=== PATIENT | male | born 1980 | race Caucasian/White ===

== ENCOUNTER 2016-10-15 08:16 | Day surgery (SDC) | payer OTHER ==
[2016-10-14 18:34] LABS: BASOPHILS 0.4 %; BASOPHILS ABSOLUTE 0.04 10/3/uL (0.0-0.16); EOSINOPHILS 2.8 %; EOSINOPHILS ABSOLUTE 0.31 10/3/uL (0.0-0.53); HEMATOCRIT 39.7 % (40.0-51.0); HEMOGLOBIN 13.6 g/dL (13.6-17.8); IMMATURE GRANULOCYTES 0.3 %; IMMATURE GRANULOCYTES ABSOLUTE 0.03 10/3/uL (0.0-0.11); LYMPHOCYTES 24.2 %; LYMPHOCYTES ABSOLUTE 2.65 10/3/uL (0.67-4.30); MEAN CORPUS HGB CONC 34.3 g/dL (32.0-36.0); MEAN CORPUSCULAR VOLUME 87.4 fL (80-100); MEAN PLATELET VOLUME 8.4 fL (9.2-13.0); MONOCYTES 10.5 %; MONOCYTES ABSOLUTE 1.15 10/3/uL (0.21-1.20); NEUTROPHILS 61.8 %; NEUTROPHILS ABSOLUTE 6.79 10/3/uL (2.02-8.40); PLATELET COUNT 314 10/3/uL (150-400); RBC DISTRIBUTION WIDTH 12.8 % (12.0-16.0); RED CELL COUNT 4.54 10/6/uL (4.7-6.1)
[2016-10-14 18:35] LABS: MANUAL DIFF NO %
[2016-10-14 18:59] LABS: BUN (BLOOD UREA NITROGEN) 16 MG/DL (6-23); CALCIUM, SERUM 9.1 MG/DL (8.5-10.4); CHLORIDE, SERUM 105 MMOL/L (96-112); CO2 (CARBON DIOXIDE) 29 MMOL/L (24-34); CREATININE 1.79 MG/DL (0.70-1.30); GFR AFRICAN AMERICAN 56 ML/MIN (>=60); GFR NON AFRICAN AMERICAN 48 ML/MIN (>=60); GLUCOSE, SERUM 93 MG/DL (60-99); POTASSIUM, SERUM 4.5 MMOL/L (3.5-5.3); SODIUM, SERUM 142 MMOL/L (135-148)
[2016-10-14 19:00] LABS: ASCORBIC ACID (UR NOT ORDER) 40 (NEG); BILIRUBIN, URINE NEGATIVE (NEG); KETONE, URINE NEGATIVE (NEG); LEUKOCYTE ESTERASE(NOT OR NEG (NEG); WBC (NOT ORDERED) (RFLEX) 1 (0-5)
--- NOTE | ~2016-10-15 | OP ---
Record Of Operation [facility] [address] [place]. [address] NAME: SUHSA ERVIN : 80 STATUS : REG [facility] PAT#: [id number] AGE: 35 ADM/REG DATE : 10/15/16 MR#: [id number] REPORT SERV DATE: 10/15/16 DICTATED BY: VENKATESH FRANCOIS DATE: 10/15/16 REPORT STATUS : Draft TRANSCRIBED BY: MODL DATE: 10/15/16 DATE OF PROCEDURE: 10/15/2016 PREOPERATIVE DIAGNOSIS: Left ureteral stone. POSTOPERATIVE DIAGNOSIS: Left ureteral stone. PROCEDURES: Cystoscopy, left retrograde pyelogram, dilation of left ureteral orifice, left ureteroscopy, basket extraction of stone, and placement of left ureteral stent. SURGEON: Venkatesh Francois MD. ANESTHESIA: General. DRAINS: A 6 variable-length double-J ureteral stent with a string. COMPLICATIONS: None. ESTIMATED BLOOD LOSS: None. SPECIMENS: Left ureteral stone for stone composition analysis. DISPOSITION: Extubated to recovery room. HISTORY: This is a 35-year-old gentleman who presented to me yesterday with intractable pain from a left ureteral stone. He had been taking Toradol. He presents today for the above- stated procedure. PROCEDURE IN DETAIL: After consent was obtained, the patient was taken to the operating room and placed on the operative table in a supine position. General anesthetic was induced. The patient was then placed in the dorsal lithotomy position. His perineum was prepped and draped in the usual sterile fashion. Examination under anesthesia revealed normal external genitalia. Photographic Laboratory Technician film on the table did not definitively show his stone today. Cystourethroscopy was performed with the 30 and 70-degree lens. There was no evidence of any tumors or foreign body seen in the bladder. He did have some very fine gravel, mobile at the base of his bladder. Clear efflux was readily seen from his right ureteral orifice. His left ureteral orifice was slightly swollen and no efflux was seen. A left retrograde pyelogram was performed which showed mild hydronephrosis. As we attempted to pass a wire up the left ureteral orifice, there was immediate resistance just inside the orifice. With a mild amount of manipulation, we were able to pass the 0.38 Bentson guidewire up the ureter into the kidney. Once the guidewire had passed the stone, we had immediate drainage of sludge from that ureter. The sludge was brown in nature and did not appear purulent. The ureteral dilating balloon was then passed gently inside the distal ureter. The distal ureter was then dilated. The ureteral dilating balloon was removed. The bladder was drained. The scope and sheath were removed and the safety wire was clamped to the drapes. Rigid ureteroscopy was then performed at the distal ureter up to the level of the stone. Record Of Operation [address] [place]. [address] NAME: SUHAS ERVIN : 80 STATUS : REG [facility] PAT#: [id number] AGE: 35 ADM/REG DATE : 10/15/16 MR#: [id number] REPORT SERV DATE: 10/15/16 DICTATED BY: VENKATESH FRANCOIS DATE: 10/15/16 REPORT STATUS : Draft TRANSCRIBED BY: ANDRE DATE: 10/15/16 The filiform basket was used to remove the stone in its entirety. This was sent to Pathology for stone composition analysis. We then re-scoped the distal ureter and found no abnormalities. A retrograde pyelogram was performed, which showed the collecting system was intact. We then removed the ureteroscope and backed the safety wire through the cystoscope. The stent was then passed over the safety wire with a good curl seen in the renal pelvis and in the bladder. It was seen to be draining. A string was left on the stent exiting the patient's urethra. The bladder was drained. The scope and sheath were removed. The string was secured to the patient's penis using Mastisol and Tegaderm. He was awakened from his anesthetic, extubated, and taken to the recovery room in good condition. PLAN: The plan will be to have him remove his stent on Tuesday. He was written for all of his postoperative prescriptions yesterday. He may follow up in 3 to 4 weeks with a KUB. TARUN/ANDRE Venkatesh Francois M.D. / [id number] CC: Venkatesh Francois M.D.
[~2016-10-15 08:16] MED LIST: CIP5 PO; FLOMAX4 PO; NORCO1 TA1 PO; TORATAB PO
[2016-10-15 12:26] LABS: ASCORBIC ACID (UR NOT ORDER) 40 (NEG); BILIRUBIN, URINE NEGATIVE (NEG); KETONE, URINE NEGATIVE (NEG); LEUKOCYTE ESTERASE(NOT OR NEG (NEG); WBC (NOT ORDERED) (RFLEX) 2 (0-5)
[2016-10-21 12:14] LABS: STONE COMPOSITION TWO DNR (())
== END 2016-10-15 14:49 | disposition home or self-care (01) ==
LOC: SDC 08:16
PROVIDERS: Urology
PROC: 0T778DZ Dilation of Left Ureter with Intraluminal Device, Via Natural or Artificial Opening Endoscopic (ICD-10-PCS; 2016-10-15)
PROC: 0TC78ZZ Extirpation of Matter from Left Ureter, Via Natural or Artificial Opening Endoscopic (ICD-10-PCS; principal; 2016-10-15 10:45)
DX: N13.2 Hydronephrosis with renal and ureteral calculous obstruction (principal); F17.210 Nicotine dependence, cigarettes, uncomplicated; Z98.890 Other specified postprocedural states
CPT/HCPCS: 74420; 80048; 81001; 82365; 85025; A9270-GY; C1726; C1758; C1769; C2617; J2250; J2405; J2710; J3010; Q9967